=== PATIENT | female | born 1980 | race Two or more races ===

== ENCOUNTER 2024-06-23 15:24 | Emergency (ER) | payer OTHER ==
[~2024-06-23] VITALS: Ht 157.5 cm; Wt 65.3 kg
[2024-06-23 15:28] VITALS: BP 134/76; PULSE 74; RESP 15; O2SAT 100
[2024-06-23 16:14] LABS: BILIRUBIN,URINE NEGATIVE (Neg); CLARITY,URINE CLEAR (Clear); COLOR,URINE YELLOW (Yellow); GLUCOSE, URINE NEGATIVE (Neg); KETONES,URINE TRACE mg/dl (Neg); LEUKOCYTE ESTERASE ,URINE NEGATIVE (Neg); NITRITES, URINE NEGATIVE (Neg); OCCULT BLOOD,URINE NEGATIVE (Neg); PH,URINE 5.5 (4.8-8.0); PROTEIN,URINE NEGATIVE (Neg); UROBILINOGEN,URINE 0.2 E.U/dL (0.2-1.0)
[2024-06-23 16:28] LABS: UA COLLECTION TYPE CLN CATCH MIDSTREAM
[2024-06-23 18:24] LABS: URINE HCG POSITIVE (NEG)
[2024-06-23] MEDS ORDERED: MECL-231 PO (18:41)
[2024-06-23 18:54] VITALS: TEMP 98
== END 2024-06-23 18:56 | disposition home or self-care (01) ==
LOC: ER 15:26
DX: H81.10 Benign paroxysmal vertigo, unspecified ear (principal); Z33.1 Pregnant state, incidental
CPT/HCPCS: 81003; 81025; 99283